=== PATIENT | male | born 1960 | race Two or more races ===

== ENCOUNTER 2024-11-14 14:28 | Emergency (ER) | payer OTHER ==
[~2024-11-14] VITALS: Ht 177.8 cm; Wt 131.5 kg
[2024-11-14] MEDS ORDERED: CLINDAMYCIN PHOSPHATE 150 MG/ML (600mg) IV ONE (16:30)
[2024-11-14] MEDS ORDERED: TETANUS & DIPHTHERIA TOX,ADULT 0.5 ML VIAL IM ONE (16:30)
[2024-11-14] MEDS ORDERED: LIDOCAINE HCL 1% 10ML VIAL IJ ONE (16:30)
== END 2024-11-14 18:38 | disposition home or self-care (01) ==
LOC: ER 14:30
DX: S50.871A Other superficial bite of right forearm, initial encounter (principal); W54.0XXA Bitten by dog, initial encounter; Y93.89 Activity, other specified; Y92.89 Other specified places as the place of occurrence of the external cause